=== PATIENT | female | born 1970 | race African-American/Black ===

== ENCOUNTER 2023-01-10 03:38 | Emergency (ER) | payer OTHER ==
[2023-01-10 03:46] VITALS: BMI 23.0
[2023-01-10] MEDS ORDERED: SODIUM CHLORIDE 1,000 ML IV STA (04:21)
[2023-01-10 05:56] LABS: EOS % 1.3 % (0-4.5); HEMATOCRIT 27.8 % (32.4-45.2); HEMOGLOBIN 8.7 GM/dL (10.7-15.3); LYMPH % 13.6 % (8-40); MCH 22.1 pg (25.7-33.7); MCHC 31.1 g/dl (32.0-36.0); MEAN PLT VOLUME 8.3 fl (7.5-11.1); MONO % 7.6 % (3.8-10.2); NEUT % 76.5 % (42.8-82.8); RBC 3.92 M/mm3 (3.60-5.2); RDW 17.6 % (11.6-15.6); WHITE BLOOD COUNT 6.8 K/mm3 (4.0-10.0)
[2023-01-10 05:59] LABS: CALCIUM 12.1 mg/dL (8.5-10.1)
[2023-01-10 06:00] LABS: ALBUMIN 3.2 g/dl (3.4-5.0); BLOOD UREA NITROGEN 6.9 mg/dL (7-18)
[2023-01-10 06:02] LABS: CREATININE 0.8 mg/dL (0.55-1.3)
[2023-01-10 06:04] LABS: BILIRUBIN,TOTAL 0.3 mg/dL (0.2-1); TOT PROT 8.6 g/dl (6.4-8.2)
[2023-01-10] MEDS ORDERED: SODIUM CHLORIDE 500 ML IV STA (06:04)
[2023-01-10 06:30] LABS: PLATELET ESTIMATE ADEQUATE
[2023-01-10 06:33] LABS: PLATELET COUNT 309 10^3/uL (134-434)
[2023-01-10 06:40] VITALS: PULSE 91; RESP 20
[2023-01-10 06:49] LABS: CALCIUM 11.4 mg/dL (8.5-10.1)
[2023-01-10 06:50] LABS: BLOOD UREA NITROGEN 6.5 mg/dL (7-18)
[2023-01-10 06:52] LABS: CREATININE 0.7 mg/dL (0.55-1.3)
[2023-01-10 06:54] LABS: BILIRUBIN,TOTAL 0.2 mg/dL (0.2-1); TOT PROT 7.8 g/dl (6.4-8.2)
[2023-01-10 10:42] VITALS: BP 145/95; TEMP 99.1
== END 2023-01-10 10:42 | disposition home or self-care (01) ==
LOC: JER 03:38
PROC: 3E0337Z Introduction of Electrolytic and Water Balance Substance into Peripheral Vein, Percutaneous Approach (ICD-10-PCS; principal; 2023-01-10)
DX: E83.52 Hypercalcemia (principal); Z20.822 Contact with and (suspected) exposure to COVID-19
CPT/HCPCS: 36415; 80053; 85025; 93005; 93010; 99284-25; C9803-CS; U0003; U0005